=== PATIENT | female | born 2000 | race Caucasian/White ===

== ENCOUNTER 2020-01-08 13:43 | Emergency (ER) | payer SELFPAY ==
[2020-01-08] MEDS ORDERED: NORMAL SALINE 1000 ML 1,000 ML IV ONE (15:05)
[2020-01-08] MEDS ORDERED: ONDANSETRON HCL INJ/PF 4 MG/2 ML SDV IV ONE ×2 (15:06→17:26)
[2020-01-08 15:43] LABS: ABSOLUTE LYMPHOCYTES (AUTO) 1.2 10^3/uL (0.5-4.7); ABSOLUTE MONOCYTES (AUTO) 0.6 10^3/uL (0.1-1.4); ABSOLUTE NEUT (AUTO) 14.8 10^3/uL (1.7-8.2); BASOPHILS % (AUTO) 0.2 % (0-2); HEMATOCRIT 42.3 % (36.0-47.0); HEMOGLOBIN 14.6 g/dL (12.0-15.5); LYMPHOCYTES % (AUTO) 7.2 % (13-45); MEAN CORPUSCULAR HGB CONC 34.6 g/dL (32.0-36.0); MEAN CORPUSCULAR VOLUME 87 fl (80-97); MONOCYTES % (AUTO) 3.9 % (3-13); PLATELET COUNT 193 10^3/uL (150-450); RED BLOOD COUNT 4.88 10^6/uL (3.72-5.28); RED CELL DISTRIBUTION WIDTH 12.7 % (11.5-14.0); SEGMENTED NEUTROPHILS % (AUTO) 88.7 % (42-78); TOTAL CELLS COUNTED % (AUTO) 100 %; WHITE BLOOD COUNT 16.7 10^3/uL (4.0-10.5)
--- NOTE | 2020-01-08 15:44 | ER Document Report ---
ED GI/ - General Chief Complaint: Vomiting Stated Complaint: VOMITING Time Seen by Provider: 01/08/20 14:31 Notes: CHIEF COMPLAINT: Vomiting for 3 days HPI: 19-year-old female who does not know she is presenting for vomiting for 3 days intermittent abdominal cramping but no abdominal pain. Denies vaginal bleeding or discharge. No fever. Patient is not concerned for COVID. ROS: See HPI - all other systems were reviewed and are otherwise negative Constitutional: no fever Eyes: no drainage, no blurred vision ENT: no runny nose, no sore throat Cardiovascular: no chest pain Resp: no SOB, no cough GI: Positive vomiting, no diarrhea, no abdominal pain : no dysuria Integumentary: no rash Allergy: no hives Musculoskeletal: no extremity pain or swelling Neurological: no numbness/tingling, no weakness MEDICATIONS: I agree with the patient medications as charted by the RN. ALLERGIES: I agree with the allergies as charted by the RN. PAST MEDICAL HISTORY/PAST SURGICAL HISTORY: Reviewed and agree as charted by RN. SOCIAL HISTORY: Reviewed and agree as charted by RN. FAMILY HISTORY: No significant familial comorbid conditions directly related to patient complaint EXAM: Reviewed vital signs as charted by RN. CONSTITUTIONAL: Alert and oriented and responds appropriately to questions. Well-appearing; well-nourished HEAD: Normocephalic; atraumatic EYES: PERRL; Conjunctivae clear, sclerae non-icteric ENT: normal nose; no rhinorrhea; moist mucous membranes; pharynx without lesions noted, no uvula edema or deviation, no tonsillar hypertrophy, phonation normal NECK: Supple without meningismus; non-tender; no cervical lymphadenopathy, no masses CARD: RRR; no murmurs, no clicks, no rubs, no gallops; symmetric distal pulses RESP: Normal chest excursion without splinting or tachypnea; breath sounds clear and equal bilaterally; no wheezes, no rhonchi, no rales, pulse oximetry 98% on room air not hypoxic ABD/GI: Normal bowel sounds; non-distended; soft, non-tender, no rebound, no guarding; no palpable organomegaly or masses. BACK: The back appears normal and is non-tender to palpation, there is no CVA tenderness EXT: Normal ROM in all joints; non-tender to palpation; no cyanosis, no effusions, no edema SKIN: Normal color for age and race; warm; dry; good turgor; no acute lesions noted NEURO: Moves all extremities equally; Motor and sensory function intact PSYCH: The patient's mood and manner are appropriate. Grooming and personal hygiene are appropriate. MDM: 19-year-old female presenting with vomiting over the last 3 days. No definite fevers. No cough. No shortness of breath. No chest pain. She is not sure if she might be . Does not have vaginal discharge or bleeding complaints. Has no reproducible pain on exam at this time. Will hydrate patient obtain screening labs and test - Related Data Allergies/Adverse Reactions: No Known Allergies Allergy (Unverified 01/08/20 14:41) Past Medical History - Social History Smoking Status: Never Smoker Family History: Reviewed & Not Pertinent Past Surgical History: Reports: Hx Appendectomy Physical Exam - Vital signs Vitals: Temp Pulse Resp BP Pulse Ox 97.9 F 105 H 20 135/92 H 98 01/08/20 13:53 01/08/20 13:53 01/08/20 13:53 01/08/20 13:53 01/08/20 13:53 Course - Re-evaluation Re-evalutation: 01/08/20 16:50 I discussed evaluation results with the patient. Has a positive test will add a beta hCG. She again has no abdominal pain on reexam to suggest ectopic or appendicitis at this time. States that she feels much better at this time. Will await the results of the beta-hCG will refer patient to [facility] SYSTEMS ANALYST gave patient strict return precautions for worsening or persistent abdominal pain. Will need close follow-up - Vital Signs Vital signs: Temp Pulse Resp BP Pulse Ox 97.9 F 105 H 20 135/92 H 98 01/08/20 13:53 01/08/20 13:53 01/08/20 13:53 01/08/20 13:53 01/08/20 13:53 - Laboratory Result Diagrams: 01/08/20 15:27 01/08/20 15:27 Laboratory results interpreted by me: 01/08/20 01/08/20 01/08/20 15:27 15:27 15:27 WBC 16.7 H Lymph % (Auto) 7.2 L Absolute Neuts (auto) 14.8 H Seg Neutrophils % 88.7 H Sodium 135.3 L Glucose 111 H Total Bilirubin 1.7 H Urine Protein >=500 H Urine Ketones 80 H Urine Blood SMALL H Ur Leukocyte Esterase TRACE H Urine HCG, Qual POSITIVE H Discharge - Discharge Clinical Impression: Vomiting Condition: Stable Disposition: HOME, SELF-CARE Additional Instructions: It was noted today that you do have a positive test. Take Zofran for nausea vomiting. Follow-up closely with [facility] SYSTEMS ANALYST for further evaluation and treatment call for appointment. If you develop unilateral pelvic or abdominal pain return for reevaluation as discussed Prescriptions: Ondansetron [Zofran Odt 4 mg Tablet] 1 - 2 tab PO Q4H PRN #15 tab.rapdis PRN Reason: For Nausea/Vomiting Referrals: CHAD NICHOLAS MD [ACTIVE PROVISIONAL STAFF] - Follow up as needed
[2020-01-08 15:48] LABS: APPEARANCE,URINE CLOUDY; BILIRUBIN,URINE NEGATIVE (NEGATIVE); CALCIUM OXALATE CRYSTALS,URINE MODERATE /HPF; COLOR,URINE AMBER; GLUCOSE, URINE NEGATIVE (NEGATIVE); KETONES,URINE 80 mg/dL (NEGATIVE); LEUKOCYTE ESTERASE,URINE TRACE (NEGATIVE); NITRITE,URINE NEGATIVE (NEGATIVE); PROTEIN,URINE >=500 mg/dL (NEGATIVE); URINE SPECIFIC GRAVITY 1.028; UROBILINOGEN,URINE NEGATIVE mg/dL (<2.0)
[2020-01-08 16:01] LABS: ALBUMIN 4.5 g/dL (3.7-5.6); ALKALINE PHOSPHATASE 52 U/L (50-135); ANION GAP 11 (5-19); ASPARTATE AMINO TRANSFERASE 19 U/L (5-30); BILIRUBIN,DIRECT 0.3 mg/dL (0.0-0.4); BILIRUBIN,TOTAL 1.7 mg/dL (0.2-1.3); BLOOD UREA NITROGEN 13 mg/dL (7-20); CALCIUM 9.8 mg/dL (8.4-10.2); CARBON DIOXIDE 24 mmol/L (22-30); CHLORIDE 100 mmol/L (98-107); GLUCOSE 111 mg/dL (75-110); POTASSIUM 3.8 mmol/L (3.6-5.0)
[2020-01-08 17:57] VITALS: BP 123/59
== END 2020-01-08 17:57 | disposition home or self-care (01) ==
LOC: ER 13:43
DX: O21.9 Vomiting of pregnancy, unspecified (principal); O26.899 Other specified pregnancy related conditions, unspecified trimester; R10.9 Unspecified abdominal pain; Z3A.00 Weeks of gestation of pregnancy not specified; Z90.49 Acquired absence of other specified parts of digestive tract
CPT/HCPCS: 99284; 96361; 96374; 96375; 36415; 84702; 85025; 81025; 80053; 81001; J2405; J7030

== ENCOUNTER 2020-01-11 19:18 | Emergency (ER) | payer SELFPAY ==
[2020-01-11] MEDS ORDERED: RINGERS SOLUTION,LACTATED 1,000 ML IV ONE ×2 (19:48→21:52)
[2020-01-11] MEDS ORDERED: METOCLOPRAMIDE HCL INJ/PF 10 MG/2 ML SDV IV ONE (19:48)
--- NOTE | 2020-01-11 19:50 | ER Document Report ---
ED Medical Screen (RME) - General Chief Complaint: Nausea/Vomiting Stated Complaint: VOMITING - Time Seen by Provider: 01/11/20 19:44 Primary Care Provider: RICARDO CONNELLY [Primary Care Provider] - Follow up as needed Mode of Arrival: Ambulatory Information source: Patient Notes: HPI; 19-year-old female who states she is approximately 3 to 4 weeks presents to the emergency room with persistent vomiting for the past 5 days. States she was seen here 3 days ago was discharged with Mary states she is not able to keep anything down at this point. No OB care as of yet. Denies any vaginal bleeding. Denies any cramping denies any discharge. PE: Alert and oriented x3. Mild distress noted. Lungs: Clear to auscultation without rales, rhonchi, wheezes. Heart: Tachycardic without murmurs, rubs, gallops. I have greeted and performed a rapid initial assessment of this patient. A comprehensive ED assessment and evaluation of the patient, analysis of test results and completion of the medical decision making process will be conducted by additional ED providers. I have specifically instructed the patient or family members with the patient to immediately return to any nursing staff should anything change in the patient's condition or with their chief complaint. TRAVEL OUTSIDE OF THE [place] IN LAST 30 DAYS: No - Related Data Allergies/Adverse Reactions: No Known Allergies Allergy (Unverified 01/08/20 14:41) Past Medical History - Social History Chew tobacco use (# tins/day): No Frequency of alcohol use: None Drug Abuse: None Past Surgical History: Reports: Hx Appendectomy Physical Exam - Vital signs Vitals: Temp Pulse Resp BP Pulse Ox 98.1 F 102 H 12 134/71 H 97 01/11/20 19:35 01/11/20 19:35 01/11/20 19:35 01/11/20 19:35 01/11/20 19:35 Course - Vital Signs Vital signs: Temp Pulse Resp BP Pulse Ox 98.1 F 102 H 12 134/71 H 97 01/11/20 19:35 01/11/20 19:35 01/11/20 19:35 01/11/20 19:35 01/11/20 19:35 Doctor's Discharge - Discharge Referrals: RICARDO CONNELLY [Primary Care Provider] - Follow up as needed
[2020-01-11 20:16] LABS: ABSOLUTE LYMPHOCYTES (AUTO) 3.3 10^3/uL (0.5-4.7); ABSOLUTE MONOCYTES (AUTO) 1.2 10^3/uL (0.1-1.4); ABSOLUTE NEUT (AUTO) 13.5 10^3/uL (1.7-8.2); BASOPHILS % (AUTO) 0.1 % (0-2); EOSINOPHILS % (AUTO) 0.1 % (0-6); HEMATOCRIT 47.8 % (36.0-47.0); HEMOGLOBIN 17.2 g/dL (12.0-15.5); LYMPHOCYTES % (AUTO) 18.1 % (13-45); MEAN CORPUSCULAR HEMOGLOBIN 30.2 pg (27.0-33.4); MEAN CORPUSCULAR HGB CONC 35.9 g/dL (32.0-36.0); MEAN CORPUSCULAR VOLUME 84 fl (80-97); MONOCYTES % (AUTO) 6.9 % (3-13); PLATELET COUNT 240 10^3/uL (150-450); RED BLOOD COUNT 5.67 10^6/uL (3.72-5.28); RED CELL DISTRIBUTION WIDTH 12.7 % (11.5-14.0); SEGMENTED NEUTROPHILS % (AUTO) 74.8 % (42-78); TOTAL CELLS COUNTED % (AUTO) 100 %
[2020-01-11 20:21] LABS: AMORPHOUS SEDIMENT,URINE TRACE /HPF; APPEARANCE,URINE CLOUDY; BILIRUBIN,URINE NEGATIVE (NEGATIVE); COLOR,URINE AMBER; GLUCOSE, URINE NEGATIVE (NEGATIVE); KETONES,URINE 80 mg/dL (NEGATIVE); LEUKOCYTE ESTERASE,URINE NEGATIVE (NEGATIVE); NITRITE,URINE NEGATIVE (NEGATIVE); PROTEIN,URINE 30 mg/dL (NEGATIVE); URINE SPECIFIC GRAVITY 1.023
[2020-01-11 20:32] LABS: ALBUMIN 4.8 g/dL (3.7-5.6); ALKALINE PHOSPHATASE 77 U/L (50-135); ANION GAP 13 (5-19); ASPARTATE AMINO TRANSFERASE 65 U/L (5-30); BILIRUBIN,DIRECT 0.8 mg/dL (0.0-0.4); BILIRUBIN,TOTAL 4.2 mg/dL (0.2-1.3); BLOOD UREA NITROGEN 9 mg/dL (7-20); CALCIUM 9.9 mg/dL (8.4-10.2); CARBON DIOXIDE 27 mmol/L (22-30); CHLORIDE 93 mmol/L (98-107); GLUCOSE 103 mg/dL (75-110); POTASSIUM 3.5 mmol/L (3.6-5.0); TOTAL PROTEIN 7.7 g/dL (6.3-8.2)
[2020-01-11] MEDS ORDERED: DIPHENHYDRAMINE HCL 50 MG/ML VIAL IV ONE (21:51)
--- NOTE | 2020-01-11 21:54 | ER Document Report ---
ED GI/ - General Chief Complaint: Nausea/Vomiting Stated Complaint: VOMITING - Time Seen by Provider: 01/11/20 19:44 [facility] - 01/13/20 Mode of Arrival: Ambulatory Notes: Patient is a 19-year-old female, G1, P0 at reportedly 4 weeks gestation by last menstrual period, that comes to the emergency department for chief complaint of persistent vomiting for the past 5 days. Patient was seen here 3 days ago, given hydration, discharged with Zofran, she states she is taking the Zofran but despite this she continues to vomit every time she tries to eat or drink. She denies any particular abdominal pain, she states she just "has a very hungry feeling", denies flank pain, vaginal bleeding or discharge, fever. She denies any daily medications, and has not had any obstetric care yet. Past medical history of appendectomy. TRAVEL OUTSIDE OF THE [place] IN LAST 30 DAYS: No - Related Data Allergies/Adverse Reactions: No Known Allergies Allergy (Unverified 01/08/20 14:41) Past Medical History - General Information source: Patient - Social History Smoking Status: Never Smoker Chew tobacco use (# tins/day): No Frequency of alcohol use: None Drug Abuse: None Lives with: Family Family History: Reviewed & Not Pertinent Past Surgical History: Reports: Hx Appendectomy - Immunizations Immunizations up to date: Yes Hx Diphtheria, Pertussis, Tetanus Vaccination: Yes Review of Systems - Review of Systems Constitutional: No symptoms reported EENT: No symptoms reported Cardiovascular: No symptoms reported Respiratory: No symptoms reported Gastrointestinal: See HPI Genitourinary: No symptoms reported Female Genitourinary: See HPI Musculoskeletal: No symptoms reported Skin: No symptoms reported Hematologic/Lymphatic: No symptoms reported Neurological/Psychological: No symptoms reported Physical Exam - Vital signs Vitals: Temp Pulse Resp BP Pulse Ox 98.1 F 102 H 12 134/71 H 97 01/11/20 19:35 01/11/20 19:35 01/11/20 19:35 01/11/20 19:35 01/11/20 19:35 - Notes Notes: GENERAL: Patient is alert, does not appear to be in distress HEAD: Normocephalic, atraumatic. EYES: Pupils equal, round, and reactive to light. Extraocular movements intact. ENT: Oral mucosa very dry, tongue midline. Oropharynx unremarkable. Airway patent. NECK: Full range of motion. Supple. Trachea midline. No lymphadenopathy. LUNGS: Clear to auscultation bilaterally, no wheezes, rales, or rhonchi. No respiratory distress. Non-tender chest wall. HEART: Regular rate and rhythm. No murmur ABDOMEN: Soft, non-tender. Non-distended. EXTREMITIES: Moves all 4 extremities spontaneously. No edema, normal radial and dorsalis pedis pulses bilaterally. No cyanosis. BACK: no cervical, thoracic, lumbar midline tenderness. No saddle anesthesia, normal distal neurovascular exam. Moves all extremities in full range of motion. NEUROLOGICAL: Alert and oriented x3. Normal speech. Cranial nerves II through XII grossly intact. Strength 5/5 in all extremities. PSYCH: Normal affect, normal mood. SKIN: Warm, dry, normal turgor. No rashes or lesions noted. Course - Re-evaluation Re-evalutation: Patient initially tachycardic, has very dry mucous membranes, reports that she has been vomiting persistently for most of 5 days. In addition to this she has leukocytosis, elevated hemoglobin, slightly low potassium, elevated LFTs, borderline bilirubin (mainly elevated indirect bilirubin), and elevated specific gravity with ketones in the urine. However she has a very soft and benign abdomen with no guarding or tenderness noted at all, she denies any abdominal pain, and after nausea medication and to lactated Ringer boluses patient states she feels great. Patient is very well-appearing on reevaluation. Based on this I have a low suspicion of acute abdomen, I suspect her laboratory abnormalities are all from significant vomiting and significant dehydration. Patient ate multiple crackers, drink frankie roxanna, and was monitored afterwards to make sure she can tolerate p.o. for an extended period. After this patient continued to have no complaints and is requesting to go home. Patient will be switched to Reglan, she was provided with a copy of her proof of , I discussed follow-up and return precautions in detail. Patient and significant other state appreciation and agreement. Stable and well-appearing at time of discharge. - Vital Signs Vital signs: Temp Pulse Resp BP Pulse Ox 98.4 F 96 H 14 148/78 H 99 01/12/20 00:43 01/12/20 00:43 01/12/20 00:43 01/12/20 00:43 01/12/20 00:43 - Laboratory Result Diagrams: 01/11/20 20:10 01/11/20 20:10 Laboratory results interpreted by me: 01/11/20 01/11/20 01/11/20 20:00 20:10 20:10 WBC 18.0 H RBC 5.67 H Hgb 17.2 H Hct 47.8 H Absolute Neuts (auto) 13.5 H Sodium 133.4 L Potassium 3.5 L Chloride 93 L Creatinine 0.51 L Total Bilirubin 4.2 H Direct Bilirubin 0.8 H AST 65 H ALT 156 H Urine Protein 30 H Urine Ketones 80 H Urine Urobilinogen 4.0 H Discharge - Discharge Clinical Impression: Vomiting affecting , Dehydration Condition: Stable Disposition: HOME, SELF-CARE Additional Instructions: Your evaluation shows significant dehydration. This is most likely from elevating hormone in your first trimester, this does eventually resolve. Treat plenty fluids, start with bland diet, take the Reglan for nausea if needed, you can take 25 mg of Benadryl every 6 hours if needed to help with this as well. Start taking vitamins or at least folic acid. Follow-up with the health department (call listed referral Monday) and [facility] [employer]. Your liver function tests were slightly elevated, probably from the vomiting, this will need to be rechecked. Come back if you worsen including continued/uncontrolled vomiting, developing abdominal pain, fever, vaginal bleeding, or any other concerning symptoms. Prescriptions: Metoclopramide HCl [Reglan] 5 mg PO ASDIR PRN #30 tablet PRN Reason: [facility] - 01/13/20
[2020-01-11] MEDS ORDERED: METOCLOPRAMIDE HCL INJ/PF 10 MG/2 ML SDV ONE (21:58)
[2020-01-12 00:48] VITALS: BP 148/78
== END 2020-01-12 00:48 | disposition home or self-care (01) ==
LOC: ER 19:18
DX: O21.9 Vomiting of pregnancy, unspecified (principal); E86.0 Dehydration; Z3A.01 Less than 8 weeks gestation of pregnancy
CPT/HCPCS: 99284; 96361; 96374; 96375; 36415; 83690; 85025; 80053; 81001; J1200; J2765; J7120